=== PATIENT | female | born 1985 | race Caucasian/White ===

== ENCOUNTER 2018-05-22 18:12 | Emergency (ER) | payer OTHER ==
[2018-05-22] MEDS ORDERED: DEXTROSE 50% 25 GM/50 ML SYG IV ONE ×4 (18:28→21:03)
--- NOTE | 2018-05-22 19:50 | CT ---
EXAM: NONCONTRAST BRAIN CT EXAMINATION. CLINICAL INDICATION: Head injury. COMPARISON: None. TECHNIQUE: Using low dose helical CT technique, thin section axial images were performed through the brain without the administration of intravenous or subarachnoid contrast material. FINDINGS: Brain volume is normal. No diffuse brain swelling or brain herniation. No hydrocephalus. No subdural or epidural hematomas. No large subacute brain infarction. No parenchymal brain hemorrhage or evidence of intracranial mass lesion. The brainstem and cerebellum are normal. Cerebral white matter is grossly normal. Caudate heads, lentiform nuclei, thalami and internal capsules are normal. Bones of the skull and skull base are normal. The middle ears and mastoid air cells are clear. Mild chronic sphenoid sinusitis. The paranasal sinuses are otherwise clear. IMPRESSION: 1. Mild chronic sphenoid sinusitis. Otherwise, normal noncontrast brain CT examination. This exam was performed according to our departmental dose-optimization program, which includes automated exposure control, adjustment of the mA and/or kV according to patient size and/or use of iterative reconstruction technique. Electronically signed by: Winston Fountain MD 05/22/2018 7:49 PM CDT
--- NOTE | 2018-05-22 19:52 | RAD ---
EXAM DESCRIPTION: Chest,1 View CLINICAL HISTORY: altered mental status COMPARISON: None FINDINGS: Cardiac silhouette is within normal limits. There is no focal parenchymal or pleural disease. There is no acute osseous process visualized. IMPRESSION: No evidence of acute cardiopulmonary disease. Electronically signed by: Curtis Tolentino MD 05/22/2018 7:51 PM CDT
[2018-05-22] MEDS ORDERED: SODIUM CHLORIDE 0.9% 1000ML 1,000 ML IVS ONE (20:08)
[2018-05-22] MEDS ORDERED: POTASSIUM CHLORIDE 20 MEQ TAB PO ONE ×2 (20:09→21:55)
--- NOTE | 2018-05-22 20:37 | CT ---
EXAM DESCRIPTION: Abdomen/Pelvis w/Contrast CLINICAL HISTORY: abd pain COMPARISON: None Available TECHNIQUE: Contiguous axial images of the abdomen and pelvis were obtained after the administration of intravenous contrast followed by reconstruction images.This exam was performed according to our departmental dose-optimization program, which includes automated exposure control, adjustment of the mA and/or kV according to patient size and/or use of iterative reconstruction technique. FINDINGS: Bilateral breast implants are present. There is moderate stool in the colon. Gallbladder is surgically absent. Large amount of urine is in the urinary bladder. There is moderate dilatation of the right renal pelvis. Proximal and mid right ureter is mildly dilated. No ureteral stone is seen but the right ureter is not well seen distally. Right nephrogram and concentration of contrast in the right renal collecting system appears delayed relative to the left kidney. There are mildly enlarged bilateral inguinal lymph nodes. No other acute abnormality. Adrenal glands are within normal limits. Aorta is normal in caliber and tapering. No significant free fluid. No free air. No bowel obstruction. There is no stranding of the mesenteric fat. IMPRESSION: Findings are concerning for possible urinary bladder outlet obstruction and possibly functional obstruction of the right ureter although the right ureteral dilatation could be because of marked distention of the urinary bladder. If retention of urine is voluntary at the time of the exam, these findings may not be significant. Clinical correlation is advised. Electronically signed by: Saurabh Flower 05/22/2018 8:36 PM CDT
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
[2018-05-22] MEDS ORDERED: KETOROLAC TROMETHAMINE INJ 30 MG/ML VIAL IV ONE (21:03)
[2018-05-22 21:32] VITALS: O2SAT 100
[2018-05-22 22:10] VITALS: BP 168/112; TEMP 98.5
== END 2018-05-22 21:53 | disposition left against medical advice (07) ==
LOC: ER 18:12
DX: E11.649 Type 2 diabetes mellitus with hypoglycemia without coma (principal); R10.84 Generalized abdominal pain; I10 Essential (primary) hypertension; M54.9 Dorsalgia, unspecified; R06.02 Shortness of breath; R00.0 Tachycardia, unspecified; N32.89 Other specified disorders of bladder; R56.9 Unspecified convulsions; Z53.29 Procedure and treatment not carried out because of patient's decision for other reasons; Z79.84 Long term (current) use of oral hypoglycemic drugs; Z79.899 Other long term (current) drug therapy
CPT/HCPCS: 36415; 70450; 71045; 74177; 80053; 80307; 80320; 81001; 81025; 82947; 82948; 83690; 85025; J1885; J7030; J7799